=== PATIENT | male | born 1965 | race Caucasian/White ===

== ENCOUNTER → 2023-09-01 | Outpatient (CLI) | payer OTHER ==
--- NOTE | 2023-09-11 13:13 | CT ---
EXAMINATION TYPE: CT cervical spine wo con CT DLP: 654 mGycm, Automated exposure control for dose reduction was used. DATE OF EXAM: 09/01/2023 1:36 PM COMPARISON: . CLINICAL INDICATION:Male, 58 years old with history of M47.812 SPONDYLOSIS; PHH, Spondylosis, cervica lgia TECHNIQUE: Axial CT images from the skull base to the inferior aspect of T2 we obtained without intra venous contrast. Coronal and sagittal reformatted images were also reviewed. Contrast used: mL of , (if blank None) Oral contrast used: (if blank None) FINDINGS: Fracture: None. Osseous structures: Vertebral body heights are intact. Moderately pronounced endplate spondylosis is present. Multilevel loss of disc height is present. Vertebral alignment: Alignment within normal limits. Spinal canal/Neural Foramina: No evidence of significant spinal canal narrowing. No evidence for sign ificant neural foraminal stenosis. Neck soft tissues: Prevertebral soft tissues are within normal limits. Other: The airway is patent. The lung apices are clear. IMPRESSION: 1. No evidence of cervical spine fracture. 2. Multilevel degenerative disc disease and moderately pronounced endplate spondylosis.
== END | disposition home or self-care (01) ==
LOC: RADCTMAIN 13:16
PROVIDERS: ATTEND Orthopaedic Surgery
DX: M47.812 Spondylosis without myelopathy or radiculopathy, cervical region (principal); M50.30 Other cervical disc degeneration, unspecified cervical region
CPT/HCPCS: 72125

== ENCOUNTER → 2023-11-02 | Outpatient (CLI) | payer OTHER | END | disposition home or self-care (01) | LOC: LABPAT 15:39 | PROVIDERS: ATTEND Orthopaedic Surgery | DX: Z01.812 Encounter for preprocedural laboratory examination (principal); M47.12 Other spondylosis with myelopathy, cervical region; M54.12 Radiculopathy, cervical region; Z22.322 Carrier or suspected carrier of Methicillin resistant Staphylococcus aureus | CPT/HCPCS: 86850; 86900; 86901 ==

== ENCOUNTER → 2023-11-02 | Outpatient (CLI) | payer OTHER | END | disposition home or self-care (01) | LOC: LABPRL 09:45 | PROVIDERS: ATTEND Orthopaedic Surgery | DX: Z01.812 Encounter for preprocedural laboratory examination | CPT/HCPCS: 87070 ==

== ENCOUNTER 2023-11-09 07:30 | Inpatient (IN) | payer OTHER ==
[~2023-11-09 07:30] MED LIST: ACETAMINOPHEN TAB 500 MG TAB ONE; GABAPENTIN 300 MG CAP ONE; GLYCOPYRROLATE 0.2 MG/ML 2 ML VIAL ONE; HYDROmorphone (PF) 1 MG/ML ONE; KETAMINE HCL IN 0.9 % NACL 50 MG/5 ML SYRINGE ONE; LIDOCAINE 1% INJ 10MG/ML (20 ML MDV) ONE; MIDAZOLAM 2 MG/2 ML VIAL ONE; NEOSTIGMINE 1 MG/ML 10 ML VIAL ONE; ONDANSETRON 4 MG/2 ML VIAL ONE; PROPOFOL 10 MG/ML 20 ML VIAL IV ONE; ROCURONIUM 10 MG/ML (5 ML VIAL) IV ONE; SUCCINYLCHOLINE CHLORIDE 200 MG/10 ML VIAL IV ONE; TRANEXAMIC 1,000 MG/100ML-NACL PREMIX BAG ONE; ceFAZolin 1 GM/50 ML BAG (PMX) ONE; fentaNYL (PF) 50 MCG/ML 2 ML AMP ONE
[2023-11-09] MEDS ORDERED: HYDROmorphone 0.5 MG/0.5 ML SYRINGE ONE (12:01)
[2023-11-09] MEDS ORDERED: MEPERIDINE 50 MG/ML SYRINGE ONE (12:17)
[2023-11-09] MEDS ORDERED: HYDROmorphone 1 MG/ML 1 ML SYRINGE ONE ×6 (15:01→21:13)
[2023-11-09] MEDS ORDERED: HYDROcodone/APAP 10-325MG 1 EACH TAB ONE ×4 (16:11→22:38)
[2023-11-09] MEDS ORDERED: CYCLOBENZAPRINE 10 MG TAB ONE (16:11)
[2023-11-09] MEDS ORDERED: ACETAMINOPHEN TAB 325 MG TAB ONE ×2 (17:15)
[2023-11-09] MEDS ORDERED: hydrOXYzine pamoate 25 MG CAP ONE ×2 (21:13)
[2023-11-09] MEDS ORDERED: ONDANSETRON 4 MG/2 ML VIAL ONE ×2 (21:24)
[2023-11-10] MEDS ORDERED: CYCLOBENZAPRINE 10 MG TAB ONE ×4 (00:22→21:09)
[2023-11-10] MEDS ORDERED: HYDROmorphone 1 MG/ML 1 ML SYRINGE ONE ×8 (00:23→09:05)
[2023-11-10] MEDS ORDERED: HYDROcodone/APAP 10-325MG 1 EACH TAB ONE ×8 (05:15→21:09)
[2023-11-10] MEDS ORDERED: lisinopriL 20 MG TAB ONE (09:04)
[2023-11-10] MEDS ORDERED: SENNOSIDES 8.6 MG TAB ONE (09:05)
[2023-11-10] MEDS ORDERED: GABAPENTIN 300 MG CAP ONE ×3 (11:39→21:09)
[2023-11-10] MEDS ORDERED: diazePAM 5 MG TAB ONE ×4 (12:01→21:08)
[2023-11-10] MEDS ORDERED: ACETAMINOPHEN TAB 325 MG TAB ONE ×2 (15:03)
[2023-11-10] MEDS ORDERED: hydrOXYzine pamoate 25 MG CAP ONE ×2 (21:08)
[2023-11-10] MEDS ORDERED: traZODone HCL 100 MG TAB ONE (21:09)
[2023-11-11] MEDS ORDERED: HYDROcodone/APAP 10-325MG 1 EACH TAB ONE ×10 (00:02→13:10)
[2023-11-11] MEDS ORDERED: GABAPENTIN 300 MG CAP ONE ×2 (06:40→14:26)
[2023-11-11] MEDS ORDERED: ACETAMINOPHEN TAB 325 MG TAB ONE ×4 (06:40→13:10)
[2023-11-11] MEDS ORDERED: CYCLOBENZAPRINE 10 MG TAB ONE ×2 (06:41→14:26)
[2023-11-11] MEDS ORDERED: SENNOSIDES-DOCUSATE SODIUM 1 EACH TAB PO ONE ×2 (09:50)
[2023-11-11] MEDS ORDERED: lisinopriL 20 MG TAB ONE (09:50)
[2023-11-11] MEDS ORDERED: MONTELUKAST 10 MG TAB ONE (09:50)
[2023-11-11] MEDS ORDERED: diazePAM 5 MG TAB ONE ×2 (09:51)
[2023-11-11] MEDS ORDERED: PANTOPRAZOLE 40 MG TABLET PO ONE ×2 (10:43)
--- NOTE | 2023-12-01 14:10 | CT ---
Patient Eleazar Oconnell ID [id number] Order # EXAMINATION TYPE: CT cervical spine wo con DATE OF EXAM: 11/09/2023 COMPARISON: No comparison available on downtime PACS. HISTORY: Presurgical evaluation CT DLP: Not recorded mGycm CONTRAST: None CT of the cervical spine is performed in the axial plane at 2 mm thick sections. Reconstructed image s in the coronal, and sagittal plane are reviewed on the computer. No acute fractures are evident. Vertebral body alignment is normal. Prevertebral space is normal. Anterior vertebral body spurring is present throughout the cervical spine. Disc space narrowing is present C3-4 through C7-T1. Minimal posterior endplate spurring may be presen t C5 and C7 superior endplates. In the axial plane moderate impression on thecal sac centrally at C5 is present. There is some mild right paracentral endplate spurring at C7 Vertebral body heights are preserved. No spinal canal stenosis is evident. Uncovertebral joint hypertrophy is present with moderate foraminal narrowing C3-4 C4-5 and C6-7. IMPRESSION: 1. Degenerative disc changes throughout cervical spine. 2. Uncovertebral joint hypertrophy most notable C3-4, C4-5, C6-7 with moderate foraminal narrowing bi laterally. 3. Moderate anterior thecal sac compression posterior-superior endplate spurring C5
== END 2023-11-11 14:52 | disposition home or self-care (01) | DRG 321 ==
LOC: DISRECOVER 11:46 → UNDOADMIN 14:12 → UNDODISIN 11-11 14:52
PROVIDERS: ADMIT Orthopaedic Surgery; ATTEND Orthopaedic Surgery
PROC: 0RT30ZZ Resection of Cervical Vertebral Disc, Open Approach (ICD-10-PCS; 2023-11-09)
PROC: 0RG20A0 Fusion of 2 or more Cervical Vertebral Joints with Interbody Fusion Device, Anterior Approach, Anterior Column, Open Approach (ICD-10-PCS; principal; 2023-11-09 07:30)
DX: M47.12 Other spondylosis with myelopathy, cervical region (principal); M47.22 Other spondylosis with radiculopathy, cervical region; M48.02 Spinal stenosis, cervical region; M62.522 Muscle wasting and atrophy, not elsewhere classified, left upper arm; I10 Essential (primary) hypertension; J44.89 Other specified chronic obstructive pulmonary disease; M62.521 Muscle wasting and atrophy, not elsewhere classified, right upper arm; K21.9 Gastro-esophageal reflux disease without esophagitis; E78.5 Hyperlipidemia, unspecified; Z79.899 Other long term (current) drug therapy
CPT/HCPCS: 94640